=== PATIENT | male | born 1995 | race Caucasian/White ===

== ENCOUNTER 2021-07-24 12:43 | Outpatient (CLI) | payer BC ==
[~2021-07-24] VITALS: Ht 193 cm; Wt 118.2 kg
== END 2021-07-24 14:44 | disposition home or self-care (01) ==
LOC: PREOP 12:43
PROVIDERS: ATTEND Urology
DX: Z01.818 Encounter for other preprocedural examination (principal)

== ENCOUNTER 2021-07-27 07:03 | Day surgery (SDC) | payer BC ==
[~2021-07-27] VITALS: Ht 193 cm; Wt 118.2 kg
[2021-07-27] VITALS (10 sets, daily range): BP systolic 108–142; BP diastolic 62–89
[2021-07-27] MEDS ORDERED: LACTATED RINGERS 1,000 ML IV PRN (07:15)
[2021-07-27] MEDS ORDERED: NEOSPORIN + PAIN RELIEF CREAM 15 GM ONE (07:24)
[2021-07-27] MEDS ORDERED: MIDAZOLAM 2 MG/2 ML (VERSED) VIAL ONE (08:02)
[2021-07-27] MEDS ORDERED: fentaNYL INJ 100 MCG/2 ML AMP ONE (08:02)
[2021-07-27] MEDS ORDERED: proPOfol 200 MG/20 ML (DIPRIVAN) VIAL IV ONE (08:02)
--- NOTE | 2021-07-27 08:02 | Progress Note-Pre Operative ---
Pre-Operative Progress Note H&P Reviewed The H&P was reviewed, patient examined and no changes noted. Date Seen by Provider: Jul 27, 2021 Time Seen by Provider: 08:02 Date H&P Reviewed: Jul 27, 2021 Time H&P Reviewed: 08:02 Pre-Operative Diagnosis: SEVERE MEATAL STENOSIS DINORAH MUSTAFA MD Jul 27, 2021 08:02
--- NOTE | 2021-07-27 08:04 | Progress Note-Post Operative ---
Post-Operative Progess Note Surgeon (s)/Hot Plate Plywood Press Operator (s) Surgeon DINORAH MUSTAFA MD Hot Plate Plywood Press Operator: NONE Pre-Operative Diagnosis SEVERE MEATAL STENOSIS Post-Operative Diagnosis NONE Procedure & Operative Findings Date of Procedure 07/27/21 Procedure Performed/Findings MEATOTOMY Anesthesia Type GENERAL Estimated Blood Loss Estimated blood loss (mL): NEGLIGIBLE Specimens/Packing Specimens Removed NONE Packing: NONE DINORAH MUSTAFA MD Jul 27, 2021 08:04
--- NOTE | 2021-07-27 08:06 | Discharge Inst-Urology ---
Discharge Inst-Urology Reconcile Patient Problems Problems Reviewed?: Yes Final Diagnosis SEVERE MEATAL STENOSIS Patient Instructions/Follow Up Plan/Assessment/Instructions Please make appointment to been seen in office in 2 weeks. No sex till then Tomorrow start showers, no bath Neosporin+pain ointment to meatus BID Increase oral fluids for 48 hours and then as needed. Diet as tolerated. If questions or concerns contact your physician Or seek help at emergency department. DINORAH MUSTAFA MD Jul 27, 2021 08:06
[2021-07-27] MEDS ORDERED: ONDANSETRON 4 MG/2 ML (SDV) Z0FRAN ONE (08:26)
[2021-07-27] MEDS ORDERED: LIDOCAINE PF 2% 5 ML (XYLOCAINE) VIAL ONE (08:26)
[2021-07-27] MEDS ORDERED: SEVOFLURANE (ULTANE) 15 ML INHAL SOLN ONE (08:26)
--- NOTE | 2021-07-27 08:42 | Anesthesia-General Post-Op ---
General Patient Condition Mental Status/LOC: Same as Preop Cardiovascular: Satisfactory Nausea/Vomiting: Absent Respiratory: Satisfactory Pain: Controlled Complications: Absent Post Op Complications Complications None Follow Up Care/Instructions Patient Instructions None needed. Anesthesia/Patient Condition Patient Condition Patient is doing well, no complaints, stable vital signs, no apparent adverse anesthesia problems. No complications reported per nursing. CARLOS BRICE CRNA Jul 27, 2021 08:42
[2021-07-27] MEDS ORDERED: ONDANSETRON 4 MG/2 ML (SDV) Z0FRAN IVP PRN (08:45)
[2021-07-27] MEDS ORDERED: morphine INJ 10 MG/ML 1ML (SYR OR VIAL) IVP ONE (08:45)
[2021-07-27] MEDS ORDERED: fentaNYL INJ 100 MCG/2 ML AMP IVP ONE (08:45)
--- NOTE | 2021-07-27 14:45 | OPERATIVE REPORT ---
DATE OF SERVICE: 07/27/2021 PREOPERATIVE DIAGNOSIS: Severe meatal stenosis. POSTOPERATIVE DIAGNOSIS: Severe meatal stenosis. OPERATION PERFORMED: Meatotomy. SURGEON: Jesse Mustafa MD ANESTHESIA: General. COMPLICATIONS: None. DESCRIPTION OF PROCEDURE: With the patient supine under general anesthesia, the genitalia were prepped and draped in the usual sterile fashion. Ventral meatotomy was performed after application of a straight hemostat for hemostasis. The mucosa was approximated with several interrupted 4-0 chromic catgut widely opening the meatus. Neosporin plus pain ointment was applied. The patient tolerated the procedure and anesthesia well and was sent to recovery room in stable condition. Instructions were given to the and preoperatively to the patient. Job ID: [id number] DocumentID: [id number] Dictated Date: 07/27/2021 08:50:24 Machinist Date: 07/27/2021 14:44:25 Dictated By: JESSE MUSTAFA MD
== END 2021-07-27 10:10 | disposition home or self-care (01) ==
LOC: SDC 07:03
PROVIDERS: ATTEND Urology
DX: N35.911 Unspecified urethral stricture, male, meatal (principal); Z11.2 Encounter for screening for other bacterial diseases; Z88.1 Allergy status to other antibiotic agents; Z88.0 Allergy status to penicillin
CPT/HCPCS: 87081

== ENCOUNTER → 2022-06-04 | Outpatient (CLI) | payer BC ==
[~2022-06-04] MED LIST: CATHETER FLUSH 10 ML SYR IVP PRN
--- NOTE | 2022-06-04 14:59 | Diagnostic Imaging Report ---
INDICATION: Epigastric pain EXAMINATION: Hepatobiliary scan 06/04/2022 FINDINGS: After uneventful administration of 5.47 mCi of technetium Choletec intravenously, subsequent imaging is performed with prompt homogeneous uptake seen throughout the liver. Gallbladder seen within less than 30 minutes. Small bowel seen within 60 minutes. Subsequent administration of 8 ounces of Ensure administered orally. Continued imaging is performed with ejection fraction calculated at 78.9% IMPRESSION: 1. No obstructive process. 2. Normal ejection fraction of 78.9% Dictated by: Dictated on workstation # [id number]
== END ==
LOC: CARD 11:27
PROVIDERS: ATTEND Nurse Practitioner Family
DX: R10.13 Epigastric pain (principal)
CPT/HCPCS: 78227; A9537